=== PATIENT | male | born 1985 | race Caucasian/White ===

== ENCOUNTER 2019-05-23 13:26 | Inpatient (IN) ==
--- OUTSIDE RECORDS SUMMARY | 2019-05-23 13:29 | External Medical Summary | Continuity of Care Document ---
:1985 Author Name Hermila Crouch Address Unavailable Unavailable , Care Team Providers Name Role Phone Orquidea HANNA Unavailable [email or web address] Jackie LEYVA Unavailable Unavailable Unavailable Unavailable Unavailable Problems Dysuria (788.1) (R30.0) Acid reflux (530.81) (K21.9) Urinary symptom or sign (788.99) (R39.9) Allergies and Adverse Reactions Latex (Allergy) Medications Doxepin HCl - 75 MG Oral Capsule; TAKE 1 CAPSULE DAILY. Start: 09-Aug-2014 Refills: 0 Omeprazole 20 MG Oral Capsule Delayed Re lease; TAKE 1 CAPSULE DAILY EVERY MORNING BEFORE BREAKFAST. Start: 09-Aug-2014 Refills: 0 VESIcare 10 MG Oral Tablet; Take 1 tablet daily JACQUES Heard Start: 05-Sep-2014 Quantity: 30 Refills: 6 Procedures History of Nose Surgery Status: Complete d History of Kidney Surgery Status: Comple darrin Immunizations Immunizations not documented Family History Mother Family history of diabetes mellitus (V18.0) (Z83.3) Status: Active Family history of hypertension (V17.49) (Z82.49) Status: Act heidi Brother Family history of diabetes mellitus (V18.0) (Z83.3) Status: Active Family history of hypertension (V17.49) (Z82.49) Status: Act heidi Plan of Treatment Planned Observations Planned Goals not documented Results No Known Results Results not documented Encounters Appointment; Jeanette Heard CRNP 06-Sep-2014 13:40 Encounter Diagnosis: Problem not documented
[2019-05-23 14:18] LABS: Basophils # (auto) 0.02 K/uL (0-0.2); Basophils % (auto) 0.2 %; Eosinophils # (auto) 0.04 K/uL (0-0.5); Eosinophils % (auto) 0.3 %; Hemoglobin 16.8 g/dL (14.0-18.0); Immature Granulocytes # (auto) 0.02 K/uL (0.00-0.02); Immature Granulocytes % (auto) 0.2 %; Lymphocytes # (auto) 1.47 K/uL (1.2-3.4); Lymphocytes % (auto) 12.2 %; Mean Corpuscular Hemoglobin 32.6 pg (25-34); Mean Corpuscular Hgb Conc 34.3 g/dL (32-36); Mean Platelet Volume 10.8 fL (7.4-10.4); Monocytes # (auto) 0.94 K/uL (0.11-0.59); Monocytes % (auto) 7.8 %; Neutrophils # (auto) 9.58 K/uL (1.4-6.5); Neutrophils % (auto) 79.3 %; Platelet Count 300 K/uL (130-400); RDW Coefficient of Variation 13.4 % (11.5-14.5); RDW Standard Deviation 45.9 fL (36.4-46.3); Red Blood Count 5.16 M/uL (4.7-6.1); White Blood Count 12.07 K/uL (4.8-10.8)
[2019-05-23 14:27] LABS: Appearance Urine Clear (Clear); Bilirubin Urine Negative (Negative); Blood Urine Negative (Negative); Color Urine Yellow; Glucose Urine UA Negative (Negative); Ketones Urine Negative (Negative); Leukocyte Esterase Urine Negative (Negative); Nitrite Urine Negative (Negative); Protein Urine Negative (Negative); Specific Gravity Urine 1.014 (1.000-1.030); Urobilinogen Urine Negative (Negative); pH Urine 7.5 (4.5-7.5)
[2019-05-23 14:38] LABS: Albumin Level 4.3 gm/dl (3.4-5.0); BUN Creatinine Ratio 13.3 (10-20); Calcium 9.8 mg/dl (8.5-10.1); Creatinine Clr Calc Pharmacy 121.8 ml/min; Est GFR (African American) 137.2; Est GFR (Non-African American) 118.4; Potassium 3.7 mmol/L (3.5-5.1)
[2019-05-23 14:40] LABS: Acetaminophen < 2 ug/ml (10-30); Salicylate < 1.7 mg/dl (2.8-20)
[2019-05-23] MEDS ORDERED: PROCHLORPERAZINE MALEATE 10 MG TAB PO STA (14:40)
[2019-05-23 14:49] LABS: Bilirubin,Total 0.7 mg/dl (0.2-1); Globulin 4.1 gm/dl (2.5-4.0); Thyroid Stimulating Hormone 1.17 uIu/ml (0.300-4.500); Total Protein 8.4 gm/dl (6.4-8.2)
[2019-05-23 15:06] LABS: Amphetamines+Metham, Urine Neg (Neg); Barbiturates, Urine Neg (Neg); Benzodiazepine, Urine Neg (Neg); Cocaine, Urine Neg (Neg); MDMA (Ecstacy), Urine Neg (Neg); Methadone, Urine Neg (Neg); Opiate, Urine Neg (Neg); Phencyclidine, Urine Neg (Neg)
--- NOTE | 2019-05-23 16:56 | Electrocardiogram Report ---
Test Reason : Blood Pressure : / mmHG Vent. Rate : 075 BPM Atrial Rate : 075 BPM P-R Int : 158 ms QRS Dur : 082 ms QT Int : 390 ms P-R-T Axes : 072 066 042 degrees QTc Int : 435 ms Normal sinus rhythm Normal ECG No previous ECGs available Confirmed by Morgan Strong ([id number]) on 05/23/2019 4:56:03 PM Referred By: Confirmed By:Morgan Strong
--- NOTE | 2019-05-23 17:47 | Emergency Department Note ---
Entered by Surinder Babcock acting as a scribe for History of Present Illness General Chief complaint: Mental Health Evaluation Time Seen by Provider: 05/23/19 13:36 Source: patient Limitations: no limitations History of Present Illness Onset (ago): month(s) 6 Location: upper extremity (left) Pain Consistency: + constant Quality: + constant Relieved By: not by medication (gabapentin, percocet) Associated symptoms: + syncope (multiple) and + other (suicidal ideations) The patient is a 34 year old male who presents to the Emergency Room with complaints of constant and worsening left arm pain starting 6 months ago. The patient states he has a pinched nerve in his left shoulder. He states he has seen many different specialists regarding his left shoulder. He states he has been getting steroid injections in his left shoulder for the past month. The patient states he has passed out multiple times in the past months because of the pain. He states he passed out while trying to check himself into the [facility] today. He states he landed on his right arm and he lost consciousness for a minute. He notes he was prescribed Percocets for his pain, but he notes he has not been taking them because they do not make him feel good. He states he feels like he wants to kill himself because he cannot bear the pain. He notes he does not have a plan, but just wants the pain to go away. He denies trying to hurt himself in the past. He states he has been taking Gabapentin, but notes that echevarria s not help. He states he has 3 herniated discs, severe spinal stenosis, and arthritis in his neck. Home Medications Home Medications Medication Instructions Recorded Confirmed Type acetaminophen [Tylenol Extra 500 mg PO QID PRN 05/23/19 05/23/19 History Strength] cyclobenzaprine 10 mg PO TID PRN 05/23/19 05/23/19 History fluoxetine [Prozac] 20 mg PO DAILY 05/23/19 05/23/19 History gabapentin 300 mg PO TID 05/23/19 05/23/19 History lorazepam 0.5 mg PO BID PRN 05/23/19 05/23/19 History oxycodone-acetaminophen [Percocet] 1 tab PO Q6H PRN 05/23/19 05/23/19 History Allergies Allergy/AdvReac Type Severity Reaction Status Date / Time latex Allergy Rash Unverified 05/23/19 14:17 amitriptyline AdvReac Unknown Unverified 05/23/19 14:17 hydroxyzine AdvReac Tachycardia Unverified 05/23/19 14:17 morphine AdvReac Unconscious Unverified 05/23/19 14:17 Past Med/Surg History Medical History (Updated 05/23/19 @ 17:47 by Noble Stallworth M.D.) Anxiety Arthritis of neck Spinal stenosis Family History Other Family history non-contributory Social History (Updated 05/23/19 @ 13:54 by Surinder Babcock) Preferred Language: Chilean Communication Ability: Effective Feels Safe at Home: Yes Smoking Status: Current every day smoker Review of Systems See HPI for pertinent positives & negatives. and A total of 10 systems reviewed and were otherwise negative Physical Exam Vital Signs Vital Signs - 24 hr 05/23/19 13:40 Temperature 37 C Temperature Source Oral Pulse Rate 89 Respiratory Rate 20 Blood Pressure 112/89 Blood Pressure Mean 96 Pulse Oximetry 100 Oxygen Delivery Method Room Air Sepsis Recent Fever Within 48 Hours No Sepsis Action Taken by Nursing No Action Required GENERAL: Awake, alert, anxious-appearing somewhat tearful HENT: Normocephalic, atraumatic. EYES: Normal conjunctiva. Sclera non-icteric. NECK: Supple. No nuchal rigidity. RESPIRATORY: Clear to auscultation. No wheezes. Normal respiratory effort. CARDIAC: Normal rate. Normal rhythm. Extremities warm and well perfused. MUSCULOSKELETAL: Atraumatic. Chest examination reveals no tenderness. No cervical or left shoulder tenderness. 2+ left radial pulse. No erythema of left upper extremity. NEURO: Normal sensorium. No sensory or motor deficits noted. No facial droop. SKIN: Warm and dry. No jaundice noted. PSYCH: Endorses suicidal thoughts but no plan. Hallucinations in the past but not currently. Tearful. Somewhat hysterical on initial exam. Course Course 1338: The patient was evaluated in room A6, and a complete history and physical examination were performed. 1445: I reevaluated the patient. 1800: I signed out the patient to Dr. Edwards - Emergency Medicine. He will further manage the care of the patient. Administered Medications Discontinued Medications Prochlorperazine (Compazine) 10 mg PO NOW STA Stop: 05/23/19 14:41 Last Admin: 05/23/19 14:52 Dose: 10 mg Documented by: [id number] Medical Decision Making Differential Diagnosis Differential diagnosis includes etiologies such as vasovagal event, infection, hypoglycemia, electrolyte abnormalities, cardiac sources, intracerebral event, toxicologic, neurologic, cervical radiculopathy, neuropathic pain, mood disorder, as well as others. Medical Records Attestation: I reviewed the patient's medical records. Home Medications Current Medication List: was personally reviewed by me Laboratory Data Attestation: I reviewed the patient's lab results. Result diagrams: 05/23/19 14:05 05/23/19 14:05 Lab Results 05/23/19 05/23/19 05/23/19 Range/Units 13:48 13:48 14:05 WBC 12.07 H (4.8-10.8) K/uL RBC 5.16 (4.7-6.1) M/uL Hgb 16.8 (14.0-18.0) g/dL Hct 49.0 (42-52) % MCV 95.0 (80-100) fL MCH 32.6 (25-34) pg MCHC 34.3 (32-36) g/dL RDW Std Deviation 45.9 (36.4-46.3) fL RDW Coeff of Edie 13.4 (11.5-14.5) % Plt Count 300 (130-400) K/uL MPV 10.8 H (7.4-10.4) fL Immature Gran % (Auto) 0.2 % Neut % (Auto) 79.3 % Lymph % (Auto) 12.2 % [place] % (Auto) 7.8 % Eos % (Auto) 0.3 % Baso % (Auto) 0.2 % Immature Gran # (Auto) 0.02 (0.00-0.02) K/uL Neut # (Auto) 9.58 H (1.4-6.5) K/uL Lymph # (Auto) 1.47 (1.2-3.4) K/uL [place] # (Auto) 0.94 H (0.11-0.59) K/uL Eos # (Auto) 0.04 (0-0.5) K/uL Baso # (Auto) 0.02 (0-0.2) K/uL Sodium (136-145) mmol/L Potassium (3.5-5.1) mmol/L Chloride (98-107) mmol/L Carbon Dioxide (21-32) mmol/L Anion Gap (3-11) BUN (7-18) mg/dl Creatinine (0.6-1.4) mg/dl Est Cr Clr Drug Dosing ml/min Est GFR ( Amer) Est GFR (Non-Af Amer) BUN/Creatinine Ratio (10-20) Glucose (70-99) mg/dl Calcium (8.5-10.1) mg/dl Total Bilirubin (0.2-1) mg/dl AST (15-37) U/L ALT (12-78) U/L Alkaline Phosphatase (45-117) U/L Total Protein (6.4-8.2) gm/dl Albumin (3.4-5.0) gm/dl Globulin (2.5-4.0) gm/dl Albumin/Globulin Ratio (0.9-2) TSH (0.300-4.500) uIu/ml Urine Color Yellow Urine Appearance Clear (Clear) Urine pH 7.5 (4.5-7.5) Ur Specific [place] 1.014 (1.000-1.030) Urine Protein Negative (Negative) Urine Glucose (UA) Negative (Negative) Urine Ketones Negative (Negative) Urine Blood Negative (Negative) Urine Nitrite Negative (Negative) Urine Bilirubin Negative (Negative) Urine Urobilinogen Negative (Negative) Ur Leukocyte Esterase Negative (Negative) Salicylates (2.8-20) mg/dl Urine Opiates Screen Neg (Neg) Ur Methadone, Qual Neg (Neg) Acetaminophen (10-30) ug/ml Urine Barbiturates Neg (Neg) Ur Phencyclidine (PCP) Neg (Neg) U Amphetamin/Meth Scrn Neg (Neg) MDMA (Ecstasy) Screen Neg (Neg) U Benzodiazepines Scrn Neg (Neg) Ur Cocaine Metabolite Neg (Neg) U Marijuana (THC) Screen Neg (Neg) Ethyl Alcohol mg/dL (0-3) mg/dl 05/23/19 05/23/19 05/23/19 Range/Units 14:05 14:05 14:13 WBC (4.8-10.8) K/uL RBC (4.7-6.1) M/uL Hgb (14.0-18.0) g/dL Hct (42-52) % MCV (80-100) fL MCH (25-34) pg MCHC (32-36) g/dL RDW Std Deviation (36.4-46.3) fL RDW Coeff of Edie (11.5-14.5) % Plt Count (130-400) K/uL MPV (7.4-10.4) fL Immature Gran % (Auto) % Neut % (Auto) % Lymph % (Auto) % [place] % (Auto) % Eos % (Auto) % Baso % (Auto) % Immature Gran # (Auto) (0.00-0.02) K/uL Neut # (Auto) (1.4-6.5) K/uL Lymph # (Auto) (1.2-3.4) K/uL [place] # (Auto) (0.11-0.59) K/uL Eos # (Auto) (0-0.5) K/uL Baso # (Auto) (0-0.2) K/uL Sodium 136 (136-145) mmol/L Potassium 3.7 (3.5-5.1) mmol/L Chloride 101 (98-107) mmol/L Carbon Dioxide 29 (21-32) mmol/L Anion Gap 6.0 (3-11) BUN 10 (7-18) mg/dl Creatinine 0.77 (0.6-1.4) mg/dl Est Cr Clr Drug Dosing 121.8 ml/min Est GFR ( Amer) 137.2 Est GFR (Non-Af Amer) 118.4 BUN/Creatinine Ratio 13.3 (10-20) Glucose 104 H (70-99) mg/dl Calcium 9.8 (8.5-10.1) mg/dl Total Bilirubin 0.7 (0.2-1) mg/dl AST 30 (15-37) U/L ALT 102 H (12-78) U/L Alkaline Phosphatase 121 H (45-117) U/L Total Protein 8.4 H (6.4-8.2) gm/dl Albumin 4.3 (3.4-5.0) gm/dl Globulin 4.1 H (2.5-4.0) gm/dl Albumin/Globulin Ratio 1.0 (0.9-2) TSH 1.170 (0.300-4.500) uIu/ml Urine Color Urine Appearance (Clear) Urine pH (4.5-7.5) Ur Specific [place] (1.000-1.030) Urine Protein (Negative) Urine Glucose (UA) (Negative) Urine Ketones (Negative) Urine Blood (Negative) Urine Nitrite (Negative) Urine Bilirubin (Negative) Urine Urobilinogen (Negative) Ur Leukocyte Esterase (Negative) Salicylates < 1.7 L (2.8-20) mg/dl Urine Opiates Screen (Neg) Ur Methadone, Qual (Neg) Acetaminophen < 2 L (10-30) ug/ml Urine Barbiturates (Neg) Ur Phencyclidine (PCP) (Neg) U Amphetamin/Meth Scrn (Neg) MDMA (Ecstasy) Screen (Neg) U Benzodiazepines Scrn (Neg) Ur Cocaine Metabolite (Neg) U Marijuana (THC) Screen (Neg) Ethyl Alcohol mg/dL < 3.0 (0-3) mg/dl ECG Data Attestation: I personally reviewed and interpreted this ECG as follows: Indication: + syncope Rate (beats per minute): 75 Rhythm: + normal sinus ECG Intervals/blocks: + Normal QRS, + Normal QT, + Normal CT and + Normal QT-c ECG Celina: + Normal ECG ST segments: no ST depression and no ST elevation ECG Findings: no PVCs Blood Pressure Blood Pressure Findings: Elevated blood pressure Blood Pressure Disposition: Referred to patients primary care provider [facility] Narrative Patient is a 34-year-old gentleman reportedly with about a 6-month history of se miguel angel pain in his left arm he describes as neuropathic pain. Has had multiple evaluations other facilities trialed on gabapentin and other pain medications as well as pain injections without significant improvement. Patient states the pain is so bad that it hurts for him to move and he cannot do anything that he wants. Patient states he can lift up his children. Denies any other specific trauma. No evidence of cellulitis. Warm and perfused. Good left radial pulse. Patient is left-handed. Reports he has some disc disease in his neck. States he got to the point today where he wants to kill himself related to this pain. Syncope from the pain he had in his arm. Patient states the pain is been bad enough he is passed out multiple times before including today. Patient is quite tearful and anxious on exam. Outside records were obtained from [facility] and [facility]. Reviewed available records from these facilities with multiple visits. Imaging x-rays and CTs appear to been completed on this. Patient was emphatic that he had an MRI of his spine done previously at [facility] the [facility] within the last ~month when he was having these symptoms. Thus in discussion will not recomplete here today. Do not feel this represents epidural abscess at this juncture. Patient declined narcotic pain medicine here. Medical clearance was completed here. Patient needs outpatient spine referral for his cervical issues. Patient is moving and using his left hand here. Do not feel medically he needs admitted for further evaluation of this at this time. Patient states he feels very depressed and wants help with this. States because of several pain management procedures he is not been using certain of his home medications includes anxiety and depression medicines. Stat es is having thoughts of hurting himself but does not have a plan and has not tried before. Referral was made for inpatient psychiatric care here under voluntary status. Again he passed out at the [facility] earlier and they did state that they had a bed for him and he wished to go there. Signed out to my colleague pending status of referral upstairs. No involuntary grounds. Impression & Plan Feeling suicidal, Arm pain, left, Syncope Discharge Plan Visit Data Chief Complaint: Mental Health Evaluation Other Complaint: Syncope ED Provider: Giovany Edwards Discharge Problem: Feeling suicidal, Arm pain, left, Syncope Forms Stand Alone Forms: My [facility], Suicide Prevention Resources Prescriptions Prescriptions: No Action acetaminophen [Tylenol Extra Strength] 500 mg Tablet 500 mg PO QID PRN (Reason: Pain) RF: 0 oxycodone-acetaminophen [Percocet] 5-325 mg Tablet 1 tab PO Q6H PRN (Reason: Pain, Severe) RF: 0 lorazepam 0.5 mg Tablet 0.5 mg PO BID PRN (Reason: Anxiety) RF: 0 gabapentin 300 mg Capsule 300 mg PO TID RF: 0 fluoxetine [Prozac] 20 mg Capsule 20 mg PO DAILY RF: 0 cyclobenzaprine 10 mg Tablet 10 mg PO TID PRN (Reason: Muscle Spasm) RF: 0 Discharge Problem: Syncope Qualifiers: Syncope type: unspecified Qualified Code(s): R55 - Syncope and collapse The scribe's documentation has been prepared under my direction and personally reviewed by me in its entirety. I confirm that the note above accurately reflects all work, treatment, procedures, and medical decision making performed by me.
[2019-05-23] MEDS ORDERED: LORazepam 1 MG TAB SL STA (18:02)
[2019-05-23] MEDS ORDERED: BISMUTH SUBSALICYLATE PER ML OMNICELL CHARGE PO PRN (18:18)
[2019-05-23] MEDS ORDERED: ACETAMINOPHEN 325 MG TAB PO PRN (18:18)
[2019-05-23] MEDS ORDERED: ALUMINUM/MAGNESIUM SUSP 30 ML UDC PO PRN (18:18)
[2019-05-23] MEDS ORDERED: SODIUM CHLORIDE 0.65% NA SOLN 45 ML (OCEAN) PRN (18:18)
[2019-05-23] MEDS ORDERED: MAGNESIUM HYDROXIDE SUSP 30 ML UDC PO PRN (18:18)
[2019-05-23] MEDS ORDERED: OXYCODONE/ACETAMINOPHEN 5mg/325mg TAB PO PRN (18:20)
[2019-05-23] MEDS ORDERED: LORazepam 0.5 MG TAB PO PRN (18:20)
[2019-05-23] MEDS ORDERED: CYCLOBENZAPRINE HCL 10 MG TAB PO PRN (18:20)
[2019-05-23] MEDS ORDERED: ACETAMINOPHEN 500 MG TAB PO PRN (18:20)
--- NOTE | 2019-05-23 18:23 | Emergency Department Note ---
ED Visit Note Received patient in signout. History and physical verified by me. Patient is requesting medicine for anxiety therefore he was given 2 mg of Ativan. He was admitted to [address]. . : Syncope Qualifiers: Syncope type: unspecified Qualified Code(s): R55 - Syncope and collapse
[2019-05-23] MEDS ORDERED: ONDANSETRON 8MG OD TAB PO STA (20:25)
[2019-05-23] MEDS ORDERED: LORazepam 2 MG/ML VIAL (IM USE) IM STA (20:25)
[2019-05-23] MEDS: GABAPENTIN 300 MG CAP PO SCH (22:06)
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
[2019-05-24] MEDS ORDERED: FLUOXETINE HCL 20 MG CAP PO SCH (09:00)
[2019-05-24] MEDS: GABAPENTIN 300 MG CAP PO SCH (09:23)
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
== END 2019-05-24 10:17 | disposition home or self-care (01) | DRG 312 ==
LOC: ED 13:26 → 3S 18:18